=== PATIENT | male | born 1965 | race Caucasian/White ===

== ENCOUNTER 2019-04-19 11:37 | Emergency (ER) | payer OTHER ==
[~2019-04-19] VITALS: Ht 167.6 cm; Wt 60.0 kg
[2019-04-19 11:56] VITALS: BP 142/81
--- NOTE | 2019-04-19 12:06 | NUR ---
PT BIB EMS S/P FALL ON ICE LAST NIGHT, STATES BILATERAL KNEE PAIN "SO BAD I JUST CAN'T WALK." DENIES TAKING TYLENOL/IBUPROFEN.
[2019-04-19] MEDS ORDERED: HYDROcodone/APAP 5/325 TABLET ONE (12:13)
--- NOTE | 2019-04-19 12:27 | NUR ---
THIS RN AT BEDSIDE TO MEDICATE PT, PT REFUSED ZULEIMA ANDREWS UPDATED. PT TO RADIOLOGY.
[2019-04-19] MEDS ORDERED: HYDROcodone/APAP 5/325 TABLET PO ONE (12:30)
[2019-04-19] MEDS ORDERED: KETOROLAC 30 MG/1 ML ONE (12:57)
[2019-04-19] MEDS ORDERED: KETOROLAC 30 MG/1 ML IM ONE (13:00)
--- NOTE | 2019-04-19 13:01 | NUR ---
PT MEDICATED PER ORDERS.
--- NOTE | 2019-04-19 13:38 | NUR ---
Patient/Caregiver given discharge instructions and they have confirmed that they understand the instructions. Patient ambulatory with steady gait.
== END 2019-04-19 13:47 | disposition home or self-care (01) ==
LOC: ED 13:40
DX: M25.562 Pain in left knee (principal); M25.561 Pain in right knee; G89.11 Acute pain due to trauma; F17.210 Nicotine dependence, cigarettes, uncomplicated; W00.0XXA Fall on same level due to ice and snow, initial encounter; Y93.89 Activity, other specified; Y92.488 Other paved roadways as the place of occurrence of the external cause; Y99.8 Other external cause status
CPT/HCPCS: 73564; 96372; 99283; J1885